=== PATIENT | female | born 1975 | race Caucasian/White ===

== ENCOUNTER 2023-02-10 11:43 | Outpatient (NON) | payer OTHER, SELFPAY | END 2023-02-10 11:44 | disposition home or self-care (01) | PROVIDERS: Visit Provider Nurse Practitioner | DX: D17.23 Benign lipomatous neoplasm of skin and subcutaneous tissue of right leg (principal) | CPT/HCPCS: 88305 ==

== ENCOUNTER 2023-02-25 00:47 | Day surgery (SDC) | payer OTHER, SELFPAY ==
[2023-02-20 15:18] VITALS: BMI 27.4
--- NOTE | 2023-02-20 15:25 | PC.NURSE ---
Report to the Outpatient Waiting Room, entrance under the green pavilion located off [facility], at time 0600 on date 02/25/23. Planned Procedure Time: 0730. Time changes happen often and if your time is changed the preop area will call you the afternoon before. - You and your visitor will be asked to self-screen and do not enter if you have any COVID symptoms. - A mask is optional within the hospital at this time. Patients may have clear liquids (water, carbonated beverages, clear teas, apple juice) until 3 hours prior to surgery with a maximum of 20 ounces. - No food from midnight until time of surgery Take the following medications with a SIP of water the morning of surgery: NONE DO NOT STOP ANY OF YOUR OTHER PRESCRIPTION MEDICATIONS PRIOR TO SURGERY ?EXCEPT THE FOLLOWING Medications to discontinue per physician: N/A Date to take last dose: N/A Please no make-up, nail croatian, hairspray, perfume, deodorant, or body powder the day of surgery. No jewelry (including any body piercings) or valuables the day of surgery, leave them at home. Please take a shower or bath the night before, or the morning of, surgery with an antibacterial soap. Wear comfortable, loose fitting clothing. - Jewelry must be removed prior to entering the operating room. Rings and piercings that are not removed may be cut off. - The hospital will not accept responsibility for valuables. - Please leave all valuables, including medications, at home the day of surgery. If you are going home after surgery, a licensed coal tram driver must drive you home. - NO public transportation without another adult if you receive anesthesia. - We recommend that an adult stay with you for 24 hours following discharge. - We also recommend that you do not drive, make important decision, drink alcoholic beverages, or take any drugs that were not prescribed by your health care provider for at least 24 hours after your discharge time. Follow any additional instructions given to you from your surgeon. If you or anyone in your household have experienced Covid symptoms in the past week, please notify your surgeon or the nurse liaison at the phone number below for possible testing. Telephone instructions given to PT - EDUARD TRIVEDI and asked if any additional questions and then verbalized understanding. Patient advised to call surgeon office or pre surgery nurse liaison [phone] if any additional questions.
--- NOTE | 2023-02-24 14:16 | P.PNAN_ITS ---
Anes - Initial Pre Proc Eval Procedure: Operation Date: 02/25/23 07:30 Proposed Procedures p Excision of Mass on Forehead - Atif Abbasi MD Date/Time: 02/24/23 14:16 Surgeon: Atif Abbasi MD Pre Op Diagnosis: forehead mass Patient Data Age: 48 Gender: F Height: 1.6 m Weight: 70.35 kg Allergies Allergy/AdvReac Type Severity Reaction Status Date / Time No Known Allergies Allergy Verified 02/25/23 06:17 Home Medications Medication Instructions Recorded Confirmed Type escitalopram oxalate 10 mg tablet 10 mg PO HS 02/20/23 02/25/23 History trospium 20 mg tablet 20 mg PO HS 02/20/23 02/25/23 History Patient hx anesthesia problems: none Family hx anesthesia problems: none Results Review: All pre-operative results and documents have been reviewed as part of the pre- operative evaluation. [facility] Social History Social History Smoking status: Never smoker Alcohol intake: current Alcohol use details: 1/MONTH Substance use: never Substance use type: does not use Living arrangements: with family Spiritual care concerns: No Anes - Eval Final PreProcedure Day of Procedure 02/24/23 14:16 Patient weight: normal Heart: regular rate and rhythm Lungs: clear to auscultation Airway: Mallampati scale class II Neurological: alert and oriented Last oral intake: >/= 8 hours ASA classification: II Emergent: no Anesthetic plan: proceed Anesthesia type and monitoring: general LMA and standard monitoring Results Review: All pre-operative results and documents have been reviewed as part of the pre- operative evaluation. Informed Consent: The patient's anesthetic plan and its attendant risks and benefits were discussed with the patient/family/POA. Questions were solicited and answers provided to the satisfaction of the patient/family/POA.
[2023-02-25 06:16] VITALS: BP 137/94; PULSE 66; RESP 20; TEMP 36.2; O2SAT 99
[2023-02-25] MEDS: LACTATED RINGERS 1,000 ML 30 ML IV CONT (06:40)
--- NOTE | 2023-02-25 07:11 | WPDHPUPDATE1 ---
History and Physical Update Update Date/Time: 02/25/23 07:11 History and Physical has been reviewed, including an updated exam of the patient. There are NO changes in the patient's condition. Risks, benefits, and alternatives have been discussed and questions answered. Patient agrees to proceed with procedure.
--- NOTE | 2023-02-25 07:12 | W.PM.PROC2 ---
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 I want her to be very realistic about the risks involved as well as expectations. We discussed injury to local structures as well as facial nerves. This was outlined in great detail. She understands risk of recurrence and persistence. Scar locations discussed. all questions were answered to her satisfaction. Consent obtained. Patient was taken the operating room placed supine on the operating room table. Anesthesia was provided by anesthesiology and she was prepped and draped in standard sterile fashion. Surgical time-out was taken. 1% lidocaine and 0.25% Marcaine with epinephrine were used anesthetize locally. Fifteen blade used to make a transverse incision over the mass. Dissection was continued down protecting the frontalis muscle with a splitting technique. I incised the periosteum was able to elevate the mass the frontal bone. Copious irrigated with saline solution. Repaired the muscle with 4-0 Biosyn followed by 5 0 nylon in the skin. She tolerated the procedure well. Woken taken the PACU without difficulty. All instrument sponge counts were correct at the end of the case. Estimated Blood Loss 10 Drains No Packing No Pathology Yes (forehead mass) Complications No immediate complications Condition Stable Disposition PACU
[2023-02-25] MEDS: ceFAZolin 2 GM/D5W 50 ML 2 GM/50 ML BAG IVPB (07:23)
[2023-02-25] MEDS: LIDO 1%/EPINEPHRINE 1:100,000 20 ML VIAL 5 ML INFILTRATE (07:23)
[2023-02-25] MEDS: BUPivacaine HCL 0.25% PF 30 ML VIAL INFILTRATE (07:23)
[2023-02-25 08:10] VITALS: BP 117/60; PULSE 90; RESP 16; TEMP 36.3; O2SAT 99
[2023-02-25 08:25] VITALS: BP 112/76; PULSE 63; RESP 13; O2SAT 99
[2023-02-25 08:40] VITALS: PULSE 69; RESP 12; O2SAT 97
[2023-02-25 08:47] VITALS: BP 130/70; PULSE 67; RESP 14
[2023-02-25 09:15] VITALS: BP 121/80; PULSE 69; RESP 14
== END 2023-02-25 09:30 | disposition home or self-care (01) ==
PROVIDERS: Visit Provider Surgery Plastic and Reconstructive Surgery
PROC: (CPT 21026; principal; 2023-02-25 07:30)
DX: D16.4 Benign neoplasm of bones of skull and face (principal)
CPT/HCPCS: 21026; 88304; A9270; J0690; J1100; J2250; J2405; J2704; J3010; J7120